=== PATIENT | female | born 1960 | race Caucasian/White ===

== ENCOUNTER 2020-09-13 08:24 | Emergency (ER) | payer OTHER, SELFPAY ==
--- NOTE | 2020-09-13 08:29 | ED.URI ---
HPI - URI/Sore Throat General Chief Complaint: Upper Respiratory Infection Stated Complaint: cough Time Seen by Provider: 09/13/20 08:55 Source: patient and RN notes reviewed Mode of arrival: ambulatory Limitations: no limitations History of Present Illness HPI Narrative: 59-year-old female presents concern for productive cough for 1-1/2 weeks. She reports she has been vaccinated for Covid. She denies fever, chills, body aches, sweats, shortness of breath, rhinorrhea, nasal congestion, sore throat, chest pain, nausea, vomiting, diarrhea. MD elicited complaint: cough Related Data Home Medications Medication Instructions Recorded Confirmed bupropion HCl 150 mg 24 hr tablet, 450 mg PO QAM tablet 02/22/20 09/13/20 extended release simvastatin 10 mg tablet 10 mg PO DAILY 02/22/20 09/13/20 fluoxetine 40 mg capsule 40 mg PO QAM cap 02/23/20 02/23/20 Calcium 500 mg PO DAILY 09/13/20 dicyclomine 20 mg PO BID 09/13/20 uvclwuplxtsa-lqy-agqf-FA-vit K 1 tablet PO DAILY 09/13/20 09/13/20 [Adults Multivitamin] omega 8-tyt-azx-fish oil [Fish Oil] 1 cap PO DAILY 09/13/20 09/13/20 Allergies Allergy/AdvReac Type Severity Reaction Status Date / Time iodine Allergy Severe Difficulty Verified 09/13/20 08:43 Breathing shellfish derived Allergy Severe Difficulty Verified 09/13/20 08:43 Breathing Penicillins Allergy Intermediate Rash Verified 09/13/20 08:43 codeine AdvReac Severe Vomiting Verified 09/13/20 08:43 erythromycin base AdvReac Severe Nausea and Verified 09/13/20 08:43 Vomiting anesthesia AdvReac Severe Vomiting Uncoded 09/13/20 08:43 Review of Systems Review of Systems: Narrative: CONSTITUTIONAL: Denies malaise, chills, sweats, or fever. EYES: Denies visual changes, redness, or discharge. ENT: Denies rhinorrhea, congestion, sinus pain, otalgia and sore throat. CARDIOVASCULAR: Denies chest pain, palpitations, or edema. RESPIRATORY: Reports cough. Denies dyspnea. GASTROINTESTINAL: Denies abdominal pain, nausea, vomiting, diarrhea SKIN: Denies rash or itching. MUSCULOSKELETAL: Denies myalgia. NEUROLOGIC: Denies headache. All systems reviewed & are unremarkable except as noted in HPI and below PMFSH Past Medical History Medical History (Updated 09/13/20 @ 09:07 by Jessie Valencia NP) Anemia Depression H/O: pneumonia HLD (hyperlipidemia) Surgical History Surgical History (Updated 02/22/20 @ 12:27 by Amara Kamara [facility]) H/O tubal ligation History of cholecystectomy History of laparoscopy History of tonsillectomy Family History Family History (Updated 02/22/20 @ 12:29 by Amara Kamara [facility]) Father Hypertension Malignant neoplasm of prostate Bone cancer Hyperlipidemia Mother Diabetes mellitus Type I Afib Family history of general anesthesia reaction Sibling Depression Social History Social History (Updated 02/22/20 @ 12:33 by Amara Kaamra [facility]) Smoking status: Never smoker Alcohol intake: current Substance use: never Substance use type: does not use Gender identity (if verbalized by the patient): Female Comments At time of signature, agree with nursing past medical, surgical, social and family history. There is no relevant family history pertinent to the presenting complaint Exam Narrative: Exam Narrative: GENERAL: Well-appearing, well-nourished, and in no acute distress. HEAD: Normocephalic EYES: PERRLA, conjunctivae clear ENT: Nares clear, turbinates pink, no discharge. Mucous membranes moist. TM pearly lopez with sharp light reflex bilaterally; no tragal tenderness. Oropharynx not erythematous without lesions. Tonsils not enlarged and without exudate, no drooling, no hoarseness, no trismus, uvula midline. NECK: Supple. No lymphadenopathy CHEST: Scattered rhonchi in the left upper and lower lobes, otherwise clear to auscultation, breath sounds equal. No wheezing, rales, or stridor. No respiratory distress, speaks in full sentences. HEART:
[2020-09-13 08:35] VITALS: BP 134/80; PULSE 83; RESP 16; TEMP 36.1; O2SAT 97
== END 2020-09-13 09:11 | disposition home or self-care (01) ==
PROVIDERS: Emergency Provider Nurse Practitioner
DX: J06.9 Acute upper respiratory infection, unspecified (principal); R05 Cough; R09.89 Other specified symptoms and signs involving the circulatory and respiratory systems; E78.5 Hyperlipidemia, unspecified; F32.9 Major depressive disorder, single episode, unspecified
CPT/HCPCS: 99213; G0463

== ENCOUNTER 2020-10-02 09:45 | Emergency (ER) | payer OTHER, SELFPAY ==
--- NOTE | ~2020-10-02 | XR_ITS ---
EXAMINATION: XR chest 2V 10/02/2020 10:13 INDICATION: Productive cough. PROCEDURE: 2 view chest COMPARISON: No prior studies for comparison. FINDINGS: The lungs are clear. The cardiomediastinal silhouette is within normal limits. There are no pleural effusions. There is no pneumothorax suspected. IMPRESSION: 1: NO ACUTE CARDIOPULMONARY DISEASE. Reviewed, dictated and finalized at location B.
--- NOTE | 2020-10-02 09:53 | ED.URI ---
HPI - URI/Sore Throat General Chief Complaint: Upper Respiratory Infection Stated Complaint: Allergies,Congestion Time Seen by Provider: 10/02/20 09:53 Source: patient and RN notes reviewed Mode of arrival: ambulatory Limitations: no limitations History of Present Illness HPI Narrative: 59-year-old female [facility] with complaints of my bronchitis is acting up. Patient reports productive cough, SOB. Used the inhaler that she was prescribed 09/13. Was seen for similar symptoms 09/13/20 Denies fevers. No chest pain or abdominal pain. HX of seasonal allergies and asthma Related Data Home Medications Medication Instructions Recorded Confirmed bupropion HCl 150 mg 24 hr tablet, 450 mg PO QAM tablet 02/22/20 09/13/20 extended release simvastatin 10 mg tablet 10 mg PO DAILY 02/22/20 09/13/20 fluoxetine 40 mg capsule 40 mg PO QAM cap 02/23/20 02/23/20 Calcium 500 mg PO DAILY 09/13/20 blzflyfqxytz-hab-jchm-FA-vit K 1 tablet PO DAILY 09/13/20 09/13/20 [Adults Multivitamin] omega 2-hyr-kpz-fish oil [Fish Oil] 1 cap PO DAILY 09/13/20 09/13/20 Allergies Allergy/AdvReac Type Severity Reaction Status Date / Time iodine Allergy Severe Difficulty Verified 10/02/20 10:00 Breathing shellfish derived Allergy Severe Difficulty Verified 10/02/20 10:00 Breathing Penicillins Allergy Intermediate Rash Verified 10/02/20 10:00 codeine AdvReac Severe Vomiting Verified 10/02/20 10:00 erythromycin base AdvReac Severe Nausea and Verified 10/02/20 10:00 Vomiting anesthesia AdvReac Severe Vomiting Uncoded 10/02/20 10:00 Review of Systems Review of Systems: All systems reviewed & are unremarkable except as noted in HPI and below Constitutional: Constitutional: Reports no additional constitutional complaints, Denies chills and Denies fever(s) Eyes: Eyes: Reports no additional eye complaints ENT: Reports system reviewed and no additional complaints, except as documented, Denies dysphagia, Denies dizziness, Denies nasal congestion and Denies sore throat Cardiovascular: Cardiovascular: Reports no additional cardiovascular complaints and Denies chest pain Respiratory: Respiratory: Reports as per HPI, Reports chest congestion, Reports cough and Reports dyspnea Gastrointestinal: Gastrointestinal: Reports no additional gastrointestinal complaints, Denies abdominal pain, Denies nausea and Denies vomiting Musculoskeletal: Musculoskeletal: Reports no additional musculoskeletal complaints and Denies back pain Integumentary/Breasts: Skin/Breast: Reports system reviewed and no additional complaints, except as docu and Denies rash Neurologic: Reports system reviewed and no additional complaints, except as documented, Denies dizziness, Denies headache(s), Denies focal weakness and Denies numbness Psychiatric: Psychiatric: Reports no additional psychiatric complaints Allergic/Immunologic: Allergic/Immunologic: Reports no additional allergic/immunologic complaints, Denies lip swelling, Denies throat swelling and Denies tongue swelling PMFSH Past Medical History Medical History (Updated 10/02/20 @ 11:09 by Jessie Roa) Anemia Depression H/O: pneumonia HLD (hyperlipidemia) Surgical History Surgical History H/O tubal ligation History of cholecystectomy History of laparoscopy History of tonsillectomy Family History Family History Father Hypertension Malignant neoplasm of prostate Bone cancer Hyperlipidemia Mother Diabetes mellitus Type I Afib Family history of general anesthesia reaction Sibling Depression Social History Social History Smoking status: Never smoker Alcohol intake: current Substance use: never Substance use type: does not use Gender identity (if verbalized by the patient): Female Comments At the time of my signature,
[2020-10-02 09:55] VITALS: BP 135/87; PULSE 71; RESP 16; TEMP 37.1; O2SAT 98
[2020-10-02] MEDS: IPRATROPIUM BR 0.02% INH SOLN 0.5 MG/2.5 ML VIAL INHALATION (10:15)
[2020-10-02] MEDS: ALBUTEROL SULFATE NEB 2.5 MG/3 ML INH INHALATION (10:15)
== END 2020-10-02 11:14 | disposition home or self-care (01) ==
PROVIDERS: Emergency Provider Nurse Practitioner; PCP Family Medicine
DX: J45.901 Unspecified asthma with (acute) exacerbation (principal); E78.00 Pure hypercholesterolemia, unspecified
CPT/HCPCS: 71046; 94640; 99213; G0463

== ENCOUNTER 2021-01-20 08:08 | Emergency (ER) | payer OTHER, SELFPAY ==
--- NOTE | ~2021-01-20 | XR_ITS ---
XR chest 2V DATE: 01/20/2021 08:48 INDICATION: Productive cough for 4 months. Nonsmoker. TECHNIQUE: 2 views COMPARISON: 10/02/2020 2 view chest FINDINGS: Normal heart size. There is aortic tortuosity. No hilar or mediastinal enlargement. Mild bilateral apical capping. There is mild discoid atelectasis at the lung bases. The lungs otherwise appear clear. No pleural eff usion or pulmonary vascular congestion or pneumothorax. Surgical clips, right upper quadrant, consistent with cholecystectomy. IMPRESSION: Mild bibasilar discoid atelectasis; otherwise no significant change since 10/02/2020 Reviewed, dictated and finalized at location A.
[2021-01-20 08:17] VITALS: BP 140/97; PULSE 87; RESP 16; TEMP 35.9; O2SAT 95
--- NOTE | 2021-01-20 08:31 | ED.GENADULT ---
HPI - General Adult General Chief complaint: Upper Respiratory Infection Stated complaint: cp/cough Source: patient Mode of arrival: ambulatory Limitations: no limitations History of Present Illness HPI narrative: Patient is a 60-year-old female who presents to the [facility] via POV for evaluation of a wet cough that has been present since September that has worsened over the past 3 to 4 days. Patient has pertinent history of asthma. Additionally, she reports sputum production, chest tightness, and painful cough. Sputum production is thick and green in color. At home nebulizer treatments provide mild to moderate relief. Seasonal changes exacerbate symptoms. She is concerned she may have pneumonia. Of note, PCP has been managing her asthma although recently referred her to pulm. Her first appointment is 02/07/2021. She has a history of pneumonia and states today's symptoms are similar to previous episode. Denies a history of hypertension, diabetes, and renal insufficiency. Related Data Home Medications Medication Instructions Recorded Confirmed gllcgbsvmthf-huf-drmg-FA-vit K 1 tablet PO DAILY 09/13/20 01/20/21 [Adults Multivitamin] omega 7-fpj-rfq-fish oil [Fish Oil] 1 cap PO DAILY 09/13/20 01/20/21 albuterol sulfate 2.5 mg CONTINUOUS NEBULIZATION PRN 01/20/21 01/20/21 bupropion HCl 150 mg PO DAILY 01/20/21 01/20/21 dicyclomine 20 mg PO DAILY 01/20/21 01/20/21 fluoxetine 40 mg PO DAILY 01/20/21 01/20/21 montelukast 10 mg PO DAILY 01/20/21 01/20/21 simvastatin 10 mg PO DAILY 01/20/21 01/20/21 Allergies Allergy/AdvReac Type Severity Reaction Status Date / Time iodine Allergy Severe Difficulty Verified 01/20/21 08:27 Breathing shellfish derived Allergy Severe Difficulty Verified 01/20/21 08:27 Breathing Penicillins Allergy Intermediate Rash Verified 01/20/21 08:27 codeine AdvReac Severe Vomiting Verified 01/20/21 08:27 erythromycin base AdvReac Severe Nausea and Verified 01/20/21 08:27 Vomiting anesthesia AdvReac Severe Vomiting Uncoded 01/20/21 08:27 Review of Systems Review of Systems: denies history of COPD. Denies current/past tobacco use. Denies fever, sweats, chills, change in appetite, fatigue, skin color changes, headache, nasal congestion/discharge, dizziness, lymphadenopathy, sinus problems, ear pain/drainage, chest pain, heart murmurs, heart palpitations, shortness of breath, wheezing, cyanosis, hemoptysis, hoarseness, orthopnea, pleuritic pain, nausea, vomiting, diarrhea, and myalgias. PMFSH Past Medical History Medical History Anemia Depression H/O: pneumonia HLD (hyperlipidemia) Surgical History Surgical History H/O tubal ligation History of cholecystectomy History of laparoscopy History of tonsillectomy Family History Family History Father Hypertension Malignant neoplasm of prostate Bone cancer Hyperlipidemia Mother Diabetes mellitus Type I Afib Family history of general anesthesia reaction Sibling Depression Social History Social History Smoking status: Never smoker Alcohol intake: never Substance use: never Substance use type: does not use Gender identity (if verbalized by the patient): Female Comments I have reviewed and agree with the patient's past medical, surgical, social, and family hx as documented by the RN. There is no relevant family history pertinent to the presenting complaint. Exam Narrative: GENERAL: Well-appearing, well-nourished, and in no acute distress. HEAD: Normocephalic, atraumatic. No sinus tenderness or facial swelling appreciated. EYES: PERRLA and EOMI. No evidence of erythema, swelling, or drainage. ENT: Bilateral external ears and ear canals normal. Bilateral TMs are normal.No
== END 2021-01-20 09:32 | disposition home or self-care (01) ==
PROVIDERS: Emergency Provider Nurse Practitioner Family; PCP Family Medicine
DX: J45.901 Unspecified asthma with (acute) exacerbation (principal); E78.5 Hyperlipidemia, unspecified; F32.A Depression, unspecified; D64.9 Anemia, unspecified
CPT/HCPCS: 71046; 99213; G0463

== ENCOUNTER 2021-03-01 14:22 | Outpatient (CLI) | payer OTHER, SELFPAY ==
--- NOTE | 2021-03-01 17:15 | WPDPFTINT ---
PFT Procedure Performed PFT Procedure Performed Spirometry with Pre/Post Bronchodilator Plethysmography (Lung Vol) Diffusing Cap (DLCO) Flow Vol Loop PFT Interpretation This is a pulmonary function test with pre and post-bronchodilator spirometry, plethysmography and diffusing capacity. The test was performed and results interpreted in accordance with the 2019 and 2005 ATS/ERS Task Force guidelines respectively using the Global Lung Function Initiative-2012 reference equations. Patient demonstrated good effort and cooperation. Reproducibility criteria were met. The quality of the pre bronchodilator spirometry maneuver was Grade A and post bronchodilator spirometry maneuver was Grade A. Findings: Spirometry: The contour the inspiratory and expiratory flow flow tracing are normal. The pre bronchodilator FVC is 3.02 L, 94% predicted. The pre bronchodilator FEV1 is 2.32 L, 92% predicted. The FEV1: FVC ratio 77%. The post bronchodilator FVC is 3.09 L, representing a 2% increase. The post bronchodilator FEV1 is 2.52 L, representing an 8% increase. The post bronchodilator FEV1: FVC ratio is 81%. Plethysmography: The total lung capacity is 5.34 L, 103% predicted. Functional residual capacity is 2.81 L, 95% predicted. The residual volume is 2.10 L, 101% predicted. Diffusing capacity: The absolute diffusion capacity is 19.1, 88% predicted. The diffusing capacity corrected for alveolar volume is 4.53, 104% predicted. FVC is 3.02 L, 94% predicted. The pre bronchodilator Impression: The spirometry is normal without evidence of an obstructive abnormality. There is no significant improvement after inhaling a single dose of albuterol. The lung volumes are normal. The diffusing capacity is normal. There are no prior studies for comparison
== END 2021-03-01 14:23 | disposition home or self-care (01) ==
PROVIDERS: PCP Family Medicine; Visit Provider Internal Medicine Pulmonary Disease
DX: J45.20 Mild intermittent asthma, uncomplicated (principal)
CPT/HCPCS: 94060; 94726; 94729

== ENCOUNTER 2021-11-10 09:37 | Emergency (ER) | payer OTHER, SELFPAY ==
[2021-11-10 09:43] VITALS: BP 126/81; PULSE 101; RESP 20; TEMP 36.3; O2SAT 99
--- NOTE | 2021-11-10 09:47 | ED.ABDPAIN ---
HPI - Abdominal Pain General Chief Complaint: Abdominal Pain Stated Complaint: STOMACH CRAMPS/VOMITING/DIARRHEA Time Seen by Provider: 11/10/21 10:05 Source: patient and RN notes reviewed Mode of arrival: ambulatory Limitations: no limitations History of Present Illness HPI narrative: 61-year-old female presents with concern for nausea, general malaise. She reports on Friday after she ate food from [employer] she began having vomiting and diarrhea. She reports 2-3 episodes of vomiting and 2-3 episodes of diarrhea daily on Friday and . Reports she has not had vomiting or diarrhea since , however she continues to be nauseated and have general malaise. She reports headache. Reports last night she woke up and a cold sweat and then had chills. She reports she has been having a low-grade temperature. She reports epigastric abdominal pain. She denies any urine frequency, urgency, dysuria. She denies nasal congestion, rhinorrhea, sore throat, cough. She reports she had a normal bowel movement since her diarrhea stopped MD elicited complaint: other (Vomiting, diarrhea) Related Data Home Medications Medication Instructions Recorded Confirmed multivit with minerals-iron 18 1 tablet PO DAILY 09/13/20 11/10/21 mg-folic ac 400 mcg-vit K 25 mcg tablet (Adults Multivitamin) omega 3-kgc-yvo-fish oil 1,000 mg 1 cap PO DAILY 09/13/20 11/10/21 (120 mg-180 mg) capsule (Fish Oil) albuterol sulfate 2.5 mg/3 mL 2.5 mg continuous nebulization PRN 01/20/21 11/10/21 (0.083 %) solution for nebulization Allergies Allergy/AdvReac Type Severity Reaction Status Date / Time iodine Allergy Severe Difficulty Verified 11/10/21 09:43 Breathing shellfish derived Allergy Severe Difficulty Verified 11/10/21 09:43 Breathing Penicillins Allergy Intermediate Rash Verified 11/10/21 09:43 codeine AdvReac Severe Vomiting Verified 11/10/21 09:43 erythromycin base AdvReac Severe Nausea and Verified 11/10/21 09:43 Vomiting anesthesia AdvReac Severe Vomiting Uncoded 11/10/21 09:43 Review of Systems Review of Systems: CONSTITUTIONAL: Reports malaise, chills, sweats, low-grade fever. ENT: Denies rhinorrhea, congestion, sinus pain, otalgia or sore throat. CARDIOVASCULAR: Denies chest pain, palpitations, or edema. RESPIRATORY: Denies cough or dyspnea. GASTROINTESTINAL: Reports epigastric abdominal pain, nausea, vomiting, diarrhea. Denies bloody, or mucous stools. GENITOURINARY: Denies dysuria or hematuria. MUSCULOSKELETAL: Denies myalgia. NEUROLOGIC: Reports headache. All systems reviewed & are unremarkable except as noted in HPI and below PMFSH Past Medical History Medical History Anemia Depression H/O: pneumonia HLD (hyperlipidemia) Surgical History Surgical History H/O tubal ligation History of cholecystectomy History of laparoscopy History of tonsillectomy Family History Family History Father Hypertension Malignant neoplasm of prostate Bone cancer Hyperlipidemia Mother Diabetes mellitus Type I Afib Family history of general anesthesia reaction Sibling Depression Social History Social History (Updated 09/04/21 @ 09:29 by Andreina Roman MA) Smoking status: Never smoker Second hand tobacco smoke exposure: Yes Alcohol intake: former Substance use: never Substance use type: does not use Gender identity (if verbalized by the patient): Female Comments At time of signature, agree with nursing past medical, surgical, social and family history. There is no relevant family history pertinent to the presenting complaint Exam Narrative: GENERAL: Well-appearing, well-nourished, and in no acute distress. HEAD: Normocephalic, atraumatic. EYES: PERRLA, conjunctivae clear, and EOMI. ENT: Nares clear, turbinates pi
[2021-11-10] MEDS: MAG HYDROX/AL HYDROX/SIMETH 30 ML UDC PO (10:28)
[2021-11-10] MEDS: LIDOCAINE HCL 2% VISC SOLN 15 ML UDC PO (10:28)
== END 2021-11-10 11:01 | disposition home or self-care (01) ==
PROVIDERS: Emergency Provider Nurse Practitioner; PCP Family Medicine
DX: R10.13 Epigastric pain (principal); Z20.822 Contact with and (suspected) exposure to COVID-19; E78.5 Hyperlipidemia, unspecified
CPT/HCPCS: 87426; 99213; A9270; C9803; G0463

== ENCOUNTER 2021-12-04 08:18 | Emergency (ER) | payer OTHER, SELFPAY ==
--- NOTE | 2021-12-04 08:24 | ED.ABDPAIN ---
HPI - Abdominal Pain General Chief Complaint: Abdominal Pain Stated Complaint: abd cramps Source: patient and RN notes reviewed Mode of arrival: ambulatory Limitations: no limitations History of Present Illness HPI narrative: 61-year-old female presents with concern for ongoing epigastric pain. She reports she was seen at the beginning of November for epigastric pain that was made worse after eating. She reports she took the medications prescribed to her which included omeprazole, Pepcid, Maalox. She reports those medications did help her symptoms. She followed up with her primary care doctor who advised her to finish those medications. She reports she has completed the course of both of those medications but her pain is persisting and is made worse after eating. She reports has been taking Mylanta many times a day with only very mild improvement. She reports she has an appointment with her primary care again on December 12 however she felt she could not wait to be seen. She reports she has been only eating crackers and water due to the pain. Reports she has lost approximately 15 pounds since this started. She denies nausea, vomiting, diarrhea, constipation. She has history of cholecystectomy. MD elicited complaint: abdominal pain Related Data Home Medications Medication Instructions Recorded Confirmed multivit with minerals-iron 18 1 tablet PO DAILY 09/13/20 11/10/21 mg-folic ac 400 mcg-vit K 25 mcg tablet (Adults Multivitamin) omega 9-obo-crl-fish oil 1,000 mg 1 cap PO DAILY 09/13/20 11/10/21 (120 mg-180 mg) capsule (Fish Oil) albuterol sulfate 2.5 mg/3 mL 2.5 mg continuous nebulization PRN 01/20/21 11/10/21 (0.083 %) solution for nebulization Allergies Allergy/AdvReac Type Severity Reaction Status Date / Time iodine Allergy Severe Difficulty Verified 12/04/21 08:29 Breathing shellfish derived Allergy Severe Difficulty Verified 12/04/21 08:29 Breathing Penicillins Allergy Intermediate Rash Verified 12/04/21 08:29 codeine AdvReac Severe Vomiting Verified 12/04/21 08:29 erythromycin base AdvReac Severe Nausea and Verified 12/04/21 08:29 Vomiting anesthesia AdvReac Severe Vomiting Uncoded 12/04/21 08:29 Review of Systems Review of Systems: CONSTITUTIONAL: Denies malaise, chills, sweats, or fever. Reports unintentional weight loss ENT: Denies rhinorrhea, congestion, sinus pain, otalgia or sore throat. CARDIOVASCULAR: Denies chest pain, palpitations, or edema. RESPIRATORY: Denies cough or dyspnea. GASTROINTESTINAL: Reports epigastric abdominal pain. Denies nausea, vomiting, diarrhea, bloody, or mucous stools. GENITOURINARY: Denies dysuria or hematuria. MUSCULOSKELETAL: Denies myalgia. NEUROLOGIC: Denies headache. All systems reviewed & are unremarkable except as noted in HPI and below PMFSH Past Medical History Medical History Anemia Depression H/O: pneumonia HLD (hyperlipidemia) Surgical History Surgical History H/O tubal ligation History of cholecystectomy History of laparoscopy History of tonsillectomy Family History Family History Father Hypertension Malignant neoplasm of prostate Bone cancer Hyperlipidemia Mother Diabetes mellitus Type I Afib Family history of general anesthesia reaction Sibling Depression Social History Social History Smoking status: Never smoker Second hand tobacco smoke exposure: Yes Alcohol intake: former Substance use: never Substance use type: does not use Gender identity (if verbalized by the patient): Female Comments At time of signature, agree with nursing past medical, surgical, social and family history. There is no relevant family history pertinent to the presenting complaint Exam Narrative: GENE
[2021-12-04 08:27] VITALS: BP 128/76; PULSE 92; RESP 16; TEMP 36.8; O2SAT 99
== END 2021-12-04 09:02 | disposition home or self-care (01) ==
PROVIDERS: Emergency Provider Nurse Practitioner; PCP Family Medicine
DX: R10.13 Epigastric pain (principal); E78.5 Hyperlipidemia, unspecified
CPT/HCPCS: 99213; G0463

== ENCOUNTER 2022-01-03 00:36 | Day surgery (SDC) | payer OTHER, SELFPAY ==
[2021-12-12 10:03] VITALS: BMI 27.5
--- NOTE | 2021-12-18 15:01 | PC.NURSE ---
Spoke with pt. regarding upcoming EGD procedure. Instructed on new time of 01/03/22 at 1330. PAT questions updated. No questions or concerns verbalized.
--- NOTE | 2022-01-02 14:55 | PM.HPGS ---
History of Present Illness History of Present Illness Consent: Risks, benefits, and alternatives have been discussed and questions answered. Patient agrees to proceed with procedure. Chief complaint: epigastric pain, nausea Narrative: Bhargavi Catalan is a 61 year old female Referred forevaluation of nausea and epigastric pain since November 07.? states symptoms started right after eating [employer].? states she developed epigastric abdominal pain and nausea but no vomiting. ? States that she tried to eat symptoms would become worse. ? When symptoms did not improve after 3 days she eventually followed up at urgent care. ? She was told she most likely had food poisoning and was discharged home on Mylanta that she took four times a day.? she then followed up with her PCP was started on omeprazole and famotidine.? states symptoms somewhat improved but never completely went away. symptoms are worse after eating and has lost approximately 10-15 lb since her symptoms started.? some days she can only tolerate water and crackers.? She denies any vomiting, dysphagia or odynophagia.? she then had gone to the emergency room was given Carafate and pantoprazole with improvement of her symptoms. Review of Systems Review of Systems: All systems reviewed & are unremarkable except as noted in HPI and below PMFSH Past Medical History Medical History Anemia Anxiety Depression Epigastric pain H/O: pneumonia HLD (hyperlipidemia) Nausea Overweight (BMI 25.0-29.9) Surgical History Surgical History H/O tubal ligation History of cholecystectomy History of laparoscopy History of tonsillectomy Family History Family History Father Hypertension Malignant neoplasm of prostate Bone cancer Hyperlipidemia Mother Diabetes mellitus Type I Afib Family history of general anesthesia reaction Sibling Depression Social History Social History Smoking status: Never smoker Second hand tobacco smoke exposure: Yes Alcohol intake: former Substance use: never Substance use type: does not use Living arrangements: with family Gender identity (if verbalized by the patient): Female Spiritual care concerns: No Meds Home Medications and Allergies Home Medications Medication Instructions Recorded Confirmed Type multivit with minerals-iron 18 1 tablet PO DAILY 06/02/21 09/07/22 History mg-folic ac 400 mcg-vit K 25 mcg tablet (Adults Multivitamin) omega 3-qdr-pgg-fish oil 1,000 mg 1 cap PO DAILY 09/13/20 12/19/21 History (120 mg-180 mg) capsule (Fish Oil) albuterol sulfate 90 mcg/actuation 2 puff inhalation QID PRN 09/04/21 12/19/21 Rx aerosol inhaler (ProAir HFA) shortness of breath or wheezing #1 ea montelukast 10 mg tablet 10 mg PO DAILY #90 tabs 09/28/21 12/19/21 Rx simvastatin 10 mg tablet 10 mg PO DAILY #90 tabs 09/28/21 12/19/21 Rx bupropion HCl 150 mg 24 hr tablet, 150 mg PO TID #270 tabs 12/03/21 12/19/21 Rx extended release calcium carbonate 500 mg calcium 500 mg PO BID 12/10/21 12/19/21 History (1,250 mg) chewable tablet (Calcium 500) pantoprazole 40 mg tablet,delayed 40 mg PO DAILY 1 month #30 tabs 12/10/21 12/19/21 Rx release (Protonix) budesonide-formoterol HFA 160 See Rx Instructions .Route .COMPLEX 12/12/21 12/19/21 History mcg-4.5 mcg/actuation aerosol inhaler (Symbicort) fluoxetine 20 mg capsule 20 mg PO DAILY #90 caps 12/24/21 Rx fluoxetine 40 mg capsule 40 mg PO DAILY #90 caps 12/31/21 Rx Allergies Allergy/AdvReac Type Severity Reaction Status Date / Time iodine Allergy Severe Difficulty Verified 12/19/21 09:07 Breathing shellfish derived Allergy Severe Difficulty Verified 12/19/21 09:07 Breathing Penicillins Allergy Intermediate Rash Verified
[2022-01-03 12:00] VITALS: BMI 27.8
[2022-01-03] MEDS: LACTATED RINGERS 1,000 ML 150 ML IV CONT (12:16)
--- NOTE | 2022-01-03 12:19 | WPDANESEPPF ---
Anes - Initial Pre Proc Eval Procedure: Operation Date: 01/03/22 13:30 Proposed Procedures p Esophagogastroduodenoscopy - Cisco Joyner MD Date/Time: 01/03/22 12:19 Surgeon: Cisco Joyner MD Pre Op Diagnosis: epigastric pain, nausea Patient Data Age: 61 Gender: F Height: 1.65 m Weight: 75.7 kg Allergies Allergy/AdvReac Type Severity Reaction Status Date / Time iodine Allergy Severe Difficulty Verified 12/19/21 09:07 Breathing shellfish derived Allergy Severe Difficulty Verified 12/19/21 09:07 Breathing Penicillins Allergy Intermediate Rash Verified 12/19/21 09:07 codeine AdvReac Severe Vomiting Verified 12/19/21 09:07 erythromycin base AdvReac Severe Nausea and Verified 12/19/21 09:07 Vomiting anesthesia AdvReac Severe Vomiting Uncoded 12/19/21 09:07 Home Medications Medication Instructions Recorded Confirmed Type multivit with minerals-iron 18 1 tablet PO DAILY 09/13/20 12/19/21 History mg-folic ac 400 mcg-vit K 25 mcg tablet (Adults Multivitamin) omega 3-jps-yjv-fish oil 1,000 mg 1 cap PO DAILY 09/13/20 12/19/21 History (120 mg-180 mg) capsule (Fish Oil) albuterol sulfate 90 mcg/actuation 2 puff inhalation QID PRN 09/04/21 12/19/21 Rx aerosol inhaler (ProAir HFA) shortness of breath or wheezing #1 ea montelukast 10 mg tablet 10 mg PO DAILY #90 tabs 09/28/21 12/19/21 Rx simvastatin 10 mg tablet 10 mg PO DAILY #90 tabs 09/28/21 12/19/21 Rx bupropion HCl 150 mg 24 hr tablet, 150 mg PO TID #270 tabs 12/03/21 12/19/21 Rx extended release calcium carbonate 500 mg calcium 500 mg PO BID 12/10/21 12/19/21 History (1,250 mg) chewable tablet (Calcium 500) pantoprazole 40 mg tablet,delayed 40 mg PO DAILY 1 month #30 tabs 12/10/21 12/19/21 Rx release (Protonix) budesonide-formoterol HFA 160 See Rx Instructions .Route .COMPLEX 12/12/21 12/19/21 History mcg-4.5 mcg/actuation aerosol inhaler (Symbicort) fluoxetine 20 mg capsule 20 mg PO DAILY #90 caps 12/24/21 Rx fluoxetine 40 mg capsule 40 mg PO DAILY #90 caps 12/31/21 Rx Patient hx anesthesia problems: none Family hx anesthesia problems: none Results Review: All pre-operative results and documents have been reviewed as part of the pre-operative evaluation. [facility] Past Medical History Medical History (Updated 12/19/21 @ 09:58 by SHERRY Borja) Anemia Anxiety Depression Epigastric pain H/O: pneumonia HLD (hyperlipidemia) Nausea Overweight (BMI 25.0-29.9) Surgical History Surgical History H/O tubal ligation History of cholecystectomy History of laparoscopy History of tonsillectomy Family History Family History Father Hypertension Malignant neoplasm of prostate Bone cancer Hyperlipidemia Mother Diabetes mellitus Type I Afib Family history of general anesthesia reaction Sibling Depression Social History Social History Smoking status: Never smoker Second hand tobacco smoke exposure: Yes Alcohol intake: former Substance use: never Substance use type: does not use Living arrangements: with family Gender identity (if verbalized by the patient): Female Spiritual care concerns: No Anes - Eval Final PreProcedure Day of Procedure 01/03/22 12:19 Patient weight: normal Heart: regular rate and rhythm Lungs: clear to auscultation Airway: Mallampati scale class II Neurological: alert and oriented Last oral intake: >/= 8 hours ASA classification: II Emergent: no Anesthetic plan: proceed Anesthesia type and monitoring: general GIVS and standard monitoring Results Review: All pre-operative results and documents have been reviewed as part of the pre-operative evaluation. Informed Consent: The patient's anesthetic plan and its attendant risks and benefits were discusse
[2022-01-03 13:29] VITALS: BP 132/79; PULSE 75; RESP 20; O2SAT 98
[2022-01-03 13:39] VITALS: BP 136/90; PULSE 77; RESP 18; O2SAT 98
[2022-01-03 13:49] VITALS: BP 146/96; PULSE 70; RESP 15; O2SAT 100
== END 2022-01-03 14:09 | disposition home or self-care (01) ==
PROVIDERS: PCP Family Medicine; Visit Provider Internal Medicine Gastroenterology
PROC: 0DJ08ZZ Inspection of Upper Intestinal Tract, Via Natural or Artificial Opening Endoscopic (ICD-10-PCS; CPT 43235; principal; 2022-01-03 13:30)
DX: R11.2 Nausea with vomiting, unspecified (principal); K21.9 Gastro-esophageal reflux disease without esophagitis; Z90.49 Acquired absence of other specified parts of digestive tract; R10.13 Epigastric pain; Z79.51 Long term (current) use of inhaled steroids; D64.9 Anemia, unspecified; F41.9 Anxiety disorder, unspecified; F32.A Depression, unspecified; E78.5 Hyperlipidemia, unspecified
CPT/HCPCS: 43239; 88305; J2704; J7120

== ENCOUNTER 2022-05-17 09:21 | Outpatient (CLI) | payer OTHER, SELFPAY ==
--- NOTE | ~2022-05-17 | XR_ITS ---
Clinical Indication: Chest pain PA and lateral views of the chest: Comparison: 01/20/2021 Findings: The lungs are clear, without evidence of focal consolidation or pleural effusion. Cardiome diastinal silhouette is within normal limits. Bones and soft tissues are unremarkable. Impression: Normal chest. Reviewed, dictated and finalized at [facility]. OVERY MANAGER Impression: Normal chest.
--- NOTE | 2022-05-17 09:46 | ECG_ITS ---
Measurements Intervals [place] Rate: 68 P: 47 NJ: 139 QRS: 7 QRSD: 94 T: 46 QT: 384 QTc: 410 Interpretive Statements SINUS RHYTHM INCOMPLETE RIGHT BUNDLE BRANCH BLOCK [90+ ms QRS DURATION, TERMINAL R IN V1/V2, 40+ ms S IN I/aVL/V4/V5/V6] BORDERLINE ECG NO PREVIOUS ECG AVAILABLE FOR COMPARISON Electronically Signed On 05-17-2022 14:58:47 NETWORK SECURITY ANALYST by Terrence Li M.D.
== END 2022-05-17 09:22 | disposition home or self-care (01) ==
PROVIDERS: PCP Family Medicine; Visit Provider Physician Assistant Medical
DX: R07.9 Chest pain, unspecified (principal); I45.10 Unspecified right bundle-branch block
CPT/HCPCS: 71046; 93005

== ENCOUNTER → 2022-05-22 10:49 | Outpatient (CLI) | payer OTHER, SELFPAY ==
--- NOTE | ~2022-05-22 | US_ITS ---
Renal-Bladder ultrasound Clinical History: Renal failure Technique: Real-time sonographic imaging of the kidneys and urinary bladder was performed. Findings: The right kidney measures 11.5 cm in length and the left kidney measures 11.8 cm. There is no hydronephrosis or renal calculus identified. Renal cortical echogenicity is within normal limits. No renal mass lesion is identified. The urinary bladder is moderately distended at the time of this exam. No intraluminal echoes are iden tified. No abnormal wall thickening is seen. Impression: Unremarkable ultrasound of the kidneys and urinary bladder. Reviewed, dictated and finalized at location M. OR UI WEB DEVELOPER Impression: Unremarkable ultrasound of the kidneys and urinary bladder.
== END ==
PROVIDERS: PCP Family Medicine; Visit Provider Physician Assistant Medical
DX: N17.9 Acute kidney failure, unspecified (principal)
CPT/HCPCS: 76775

== ENCOUNTER 2022-05-24 08:22 | Outpatient (CLI) | payer OTHER, SELFPAY ==
--- NOTE | ~2022-05-24 | NM_ITS ---
EXAMINATION: NM stress w perf spect multi DATE: 05/28/2022 08:56 INDICATION: Chest pain, unspecified. TECHNIQUE: Rest images were obtained following intravenous administration of 10.3 mCi Tc99m tetrofosm in (Myoview). The patient performed an exercise activity. At peak exercise, 32.8 mCi Tc99m tetrofosmi n (Myoview) was administered intravenously, and stress images were obtained. Data was reconstructed i nto short axis and horizontal and vertical long axis SPECT images. Gated SPECT images were also obtai zeeshan. COMPARISON: None. FINDINGS: There is no definite reversible or fixed perfusion abnormality to suggest ischemia or infar ction. There is no segmental wall motion abnormality. Left ventricular ejection fraction measures 6 8%. IMPRESSION: 1. No definite ischemia or infarct. 2. Normal left ventricular ejection fraction measuring 68%. Reviewed, dictated and finalized at location A. H NUTRITIONAL MONITOR
--- NOTE | 2022-05-24 08:24 | EST_ITS ---
Patient Info Name: Bhargavi Catalan Age: 61 years : 1960 Gender: Female Ht: 66 in Wt: 165 lbs BSA: 1.88 m2 HR: 81 bpm BP: 143 / 93 mmHg Heart Rhythm: Sinus Rhythm Exam Date: 05/24/2022 9:23 AM Exam Location: [facility] Stress Patient Status: Outpatient Admit Date: 05/24/2022 Staff Ordering Physician: Livier Lindsay Attending Provider: Livier Lindsay Exercise Technologist: Aditi Mclaughlin CT Exercise Physician: Kulwinder Golden DO Exam Type: CA stress test treadmill w NM Study Info Indications R07.9 - Chest pain, unspecified A nuclear stress test was performed. Summary 1. 1. Negative Osvaldo exercise stress test for ischemic ST changes by ECG criteria. 2. 2. Good functional capacity, achieving 10 METs of workload. 3. 3. Baseline hypertension. 4. 4. Appropriate HR response to exercise. 5. 5. Appropriate HR recovery at 1 minute post exercise. 6. 6. Nuclear scan to follow and will be reported separately. Please correlat with it. 7. 7. Patient informed of the above results. Protocol: Osvaldo Stress ECG Details Stage: REST Duration (min): 1 min : 22 sec Speed (mph): 0.0 Grade (%): 0 HR (bpm): 81 SBP (mmHg): 144 DBP (mmHg): 93 METS: --- Stage: REST Duration (min): 5 min : 59 sec Speed (mph): 0.0 Grade (%): 0 HR (bpm): 89 SBP (mmHg): 144 DBP (mmHg): 93 METS: --- Stage: STAGE 1 Duration (min): 1 min : 0 sec Speed (mph): 1.7 Grade (%): 10 HR (bpm): 99 SBP (mmHg): 144 DBP (mmHg): 93 METS: --- Stage: STAGE 1 Duration (min): 2 min : 0 sec Speed (mph): 1.7 Grade (%): 10 HR (bpm): 104 SBP (mmHg): 144 DBP (mmHg): 93 METS: --- Stage: STAGE 1 Duration (min): 3 min : 0 sec Speed (mph): 1.7 Grade (%): 10 HR (bpm): 106 SBP (mmHg): 165 DBP (mmHg): 89 METS: --- Stage: STAGE 2 Duration (min): 1 min : 0 sec Speed (mph): 2.5 Grade (%): 12 HR (bpm): 115 SBP (mmHg): 165 DBP (mmHg): 89 METS: --- Stage: STAGE 2 Duration (min): 2 min : 0 sec Speed (mph): 2.5 Grade (%): 12 HR (bpm): 119 SBP (mmHg): 159 DBP (mmHg): 91 METS: --- Stage: STAGE 2 Duration (min): 3 min : 0 sec Speed (mph): 2.5 Grade (%): 12 HR (bpm): 124 SBP (mmHg): 159 DBP (mmHg): 91 METS: --- Stage: STAGE 3 Duration (min): 1 min : 0 sec Speed (mph): 3.4 Grade (%): 14 HR (bpm): 135 SBP (mmHg): 123 DBP (mmHg): 82 METS: --- Stage: STAGE 3 Duration (min): 1 min : 50 sec Speed (mph): 3.4 Grade (%): 14 HR (bpm): 137 SBP (mmHg): 143 DBP (mmHg): 82 METS: --- Stage: RECOVERY Duration (min): 0 min : 9 sec Speed (mph): 1.5 Grade (%): 0 HR (bpm): 137 SBP (mmHg): 143 DBP (mmHg): 82 METS: --- Stage: RECOVERY Duration (min): 1 min : 9 sec Speed (mph): 0.0 Grade (%): 0 HR (bpm): 114 SBP (mm
== END 2022-05-24 08:23 | disposition home or self-care (01) ==
PROVIDERS: PCP Family Medicine; Visit Provider Physician Assistant Medical
DX: R07.9 Chest pain, unspecified (principal)
CPT/HCPCS: 78452; 93017; A9502

== ENCOUNTER → 2023-04-18 11:01 | Outpatient (CLI) | payer OTHER, SELFPAY ==
--- NOTE | ~2023-04-18 | MM_ITS ---
EXAMINATION: MM screening og BI w ronald HISTORY: Screening mammogram TECHNIQUE: Craniocaudal and mediolateral oblique 3-D tomosynthesis images were obtained and synthetic 2-D images were generated. CAD analysis was submitted and interpreted. COMPARISON: No prior mammogram is available for comparison at this institution. BREAST PARENCHYMAL COMPOSITION: There are scattered areas of fibroglandular density. FINDINGS: No suspicious mass, calcification, or architectural distortion are identified in either michelle ast to suggest malignancy. IMPRESSION: 1. No mammographic evidence of malignancy. 2. Recommend routine screening mammography in one year. BI-RADS Category 1: Negative Reviewed, dictated and finalized at location A. OR AT LARGE
== END ==
PROVIDERS: PCP Physician Assistant Medical; Visit Provider Physician Assistant Medical
DX: Z12.31 Encounter for screening mammogram for malignant neoplasm of breast (principal)
CPT/HCPCS: 77063; 77067

== ENCOUNTER → 2023-06-06 13:01 | Outpatient (CLI) | payer OTHER, SELFPAY ==
--- NOTE | ~2023-06-06 | US_ITS ---
EXAMINATION: US thyroid DATE: 06/06/2023 13:19 INDICATION: Nontoxic single thyroid nodule. TECHNIQUE: Multiple ultrasound images of the thyroid were obtained. COMPARISON: None. FINDINGS: The right thyroid lobe measures 4.7 x 1.6 x 1.3 cm. The left thyroid lobe measures 4.5 x 1.1 x 1.2 c m. In the left thyroid lobe, there is a 9 mm solid, hypoechoic, wider than tall nodule with smooth m argin without echogenic foci (TI-RADS TR4). In the left thyroid lobe, there is a 7 mm mixed cystic an d solid, isoechoic, wider than tall nodule with smooth margin without echogenic foci (TR2). In the le ft thyroid lobe, there is a 8 mm solid, hypoechoic, wider than tall nodule with smooth margin without echogenic foci (TR4). In the right thyroid lobe, there is a 15 mm solid, hypoechoic, wider than tall nodule with ill-defined margin with punctate echogenic foci (TR5). IMPRESSION: 1. Multinodular goiter. Ultrasound-guided fine-needle aspiration of the 15 mm right thyroid nodule is recommended. Reviewed, dictated and finalized at location E. R SOFTENER SERVICER IMPRESSION: 1. Multinodular goiter. Ultrasound-guided fine-needle aspiration of the 15 mm r ight thyroid nodule is recommended.
== END ==
PROVIDERS: PCP Physician Assistant Medical; Visit Provider Physician Assistant Medical
DX: E04.2 Nontoxic multinodular goiter (principal)
CPT/HCPCS: 76536

== ENCOUNTER 2024-03-30 08:11 | Outpatient (CLI) | payer MEDICARE, SELFPAY ==
--- NOTE | ~2024-03-30 | US_ITS ---
EXAMINATION: US thyroid DATE: 03/30/2024 08:26 INDICATION: Nontoxic single thyroid nodule. TECHNIQUE: Multiple ultrasound images of the thyroid were obtained. COMPARISON: Ultrasound on 06/06/2023 FINDINGS: The right thyroid lobe measures 4.8 x 1.6 x 1.7 cm. The left thyroid lobe measures 3.8 x 1.2 x 1.2 c m. In the right thyroid lobe, there is a 7 mm mixed cystic and solid, isoechoic, wider than tall nod ule with smooth margin without echogenic foci (TI-RADS TR2). In the right thyroid lobe, there is an 8 mm solid, isoechoic, wider than tall nodule with ill-defined margin without echogenic foci (TR3). In the left thyroid lobe, there is a 10 mm predominantly solid, hypoechoic, wider than tall nodule with ill-defined margin without echogenic foci (TR4). In the left thyroid lobe, there is a 10 mm mixed cy stic and solid, isoechoic, wider than tall nodule with smooth margin without echogenic foci (TR2). IMPRESSION: 1. Thyroid nodules. Consider thyroid ultrasound in one year. Reviewed, dictated and finalized at location A. LIFT DRIVER
== END 2024-03-30 08:12 | disposition home or self-care (01) ==
LOC: GOSHIMG 08:11
PROVIDERS: PCP Family Medicine; Visit Provider Student in an Organized Health Care Education/Training Program
DX: E04.2 Nontoxic multinodular goiter (principal)
CPT/HCPCS: 76536

== ENCOUNTER 2024-03-31 08:26 | Outpatient (CLI) | payer MEDICARE, SELFPAY ==
--- NOTE | ~2024-03-31 | DEXA_ITS ---
Bone Density Report Name: CICI HERNANDEZ Age: 63 Sex: Female Ethnicity: White Date of : 1960 Indication: postmenopausal; screening for osteoporosis; parental hip fracture; asthma or emphysema; Referring Provider: PAULIE GONZALEZ Study: Bone densitometry was performed. Exam Date: March 31, 2024 Accession number: [id number] Bone Density: Region BMD T-score Z-score Classification AP Spine(L1-L4) 1.010 -0.3 1.4 Normal Femoral Neck (Left) 0.745 -0.9 0.6 Normal Total Hip (Left) 0.952 0.1 1.3 Normal Femoral Neck (Right) 0.709 -1.3 0.3 Osteopenia Total Hip (Right) 0.896 -0.4 0.9 Normal Total Hip Mean 0.924 -0.2 1.1 Normal World Health Organization criteria for BMD impression classify patients as: Normal (T-score at or above -1.0), Osteopenia (T-score between -1.0 and -2.5), or Osteoporosis (T-score at or below -2.5). 10-year Fracture Risk(1): Major Osteoporotic Fracture 16% Hip Fracture 0.8% Reported Risk Factors: [place] (), Neck BMD=0.709, BMI=29.3, parental fracture (1) FRAX(R) Version 3.08. Fracture probability calculated for an untreated patient. Fracture probability may be lower if the patient has received treatment. Clinical Information Provided by Patient: Parent has had a hip fracture Has used the following medications: Calcium Has the following medical conditions: Asthma or Emphysema Patient maximum height was 65.0 No regular weight bearing exercise Does not regularly consume dairy products Drinks caffeinated beverages Onset of menses at age 10 Number of children 2 Impression: The patient has low bone mass, based on the Right Femoral Neck T-score. The patient has an estimated ten-year risk of hip fracture of 0.8% and an estimated ten-year risk of major fracture of 16%, based on the WHO FRAX algorithm. The patient has risk factors, including: parental hip fracture. Discussion: BONE DENSITY IS LOW AT ONE OR MORE SKELETAL SITES. This patient's lowest T-score is low at one or more skeletal sites. It meets the World Health Organization's (WHO) criteria for ?low bone mass? (T-score between -1.0 and -2.5). The patient's 10-year risk of fracture as calculated by FRAX is less than the threshold where pharmacological therapy is recommended by the National Osteoporosis Foundation (NOF). However, all treatment decisions require clinical judgment and consideration of individual patient factors, including patient preferences, comorbidities, previous drug use, risk factors not captured in the FRAX model (e.g., frailty, falls, vitamin D deficiency, increased bone turnover, interval significant decline in bone density) and possible under or overestimation of fracture risk by FRAX. The patient should follow a healthful lifestyle (good nutrition with adequate calcium and vitamin D, and appropriate weight-bearing exercise). Follow-Up: Consider repeating this study in 2 to 3 years to reassess this patient's status, or sooner if there is some new clinical indication. Reported by: STUART on 03/31/2024 9:00:00 AM. Reviewed, dictated and finalized at location AErnesto VALLADARES
== END 2024-03-31 08:27 | disposition home or self-care (01) ==
LOC: ANHIMG 08:32
PROVIDERS: PCP Family Medicine; Visit Provider Student in an Organized Health Care Education/Training Program
DX: M85.88 Other specified disorders of bone density and structure, other site (principal); Z78.0 Asymptomatic menopausal state
CPT/HCPCS: 77080

== ENCOUNTER 2024-10-02 08:24 | Emergency (ER) | payer MEDICARE, SELFPAY ==
--- NOTE | ~2024-10-02 | XR_ITS ---
EXAMINATION: XR chest 2V DATE: 10/02/2024 08:48 INDICATION: Shortness of breath and productive cough TECHNIQUE: PA and lateral views of the chest were obtained. COMPARISON: Chest radiograph dated 05/17/2022 FINDINGS: Unchanged mild elevation left hemidiaphragm. Mild opacities along the left lung base and would favor atelectasis over pneumonia. The cardiomediastinal silhouette is normal. Visualized bones and soft tis sues are unremarkable. IMPRESSION: 1. Mild opacities along the elevated left hemidiaphragm which could represent atelectasis or less lik isaak pneumonia. Reviewed, dictated and finalized at location A. IMPRESSION: 1. Mild opacities along the elevated left hemidiaphragm which could represent a telectasis or less likely pneumonia.
[2024-10-02 08:34] VITALS: BP 142/82; PULSE 93; RESP 16; TEMP 36.2; O2SAT 95
--- NOTE | 2024-10-02 08:39 | ED_ITS ---
HPI - URI/Sore Throat General Chief Complaint: Upper Respiratory Infection Stated Complaint: Cough,Congestion Time Seen by Provider: 10/02/24 08:35 Source: patient Mode of arrival: ambulatory Limitations: no limitations History of Present Illness HPI Narrative: Bhargavi is a 63-year-old female patient presenting to the clinic today with complaints of cough, chest congestion, and shortness of breath the past 2 weeks. History of asthma. She is a nonsmoker. States she just got back from [facility]. Has a productive cough with some yellow phlegm. Shortness of breath is worse on exertion and when going out into the humidity. Does report some chest discomfort with coughing. Denies coughing up any blood. She denies any fevers or chills. Related Data Home Medications ?Medication ?Instructions ?Recorded ?Confirmed ?Last Taken ?Type multivit with minerals-iron 18 1 tablet PO DAILY 09/13/20 08/11/24 Unknown History mg-folic ac 400 mcg-vit K 25 mcg tablet (Adults Multivitamin) omega 2-vos-ugu-fish oil 1,000 mg 1 cap PO DAILY 09/13/20 08/11/24 Unknown History (120 mg-180 mg) capsule (Fish Oil) calcium carbonate (Calcium 500) 500 mg PO BID 12/10/21 08/11/24 Unknown History Allergies Allergy/AdvReac Type Severity Reaction Status Date / Time iodine Allergy Severe Difficulty Verified 10/02/24 09:33 Breathing shellfish derived Allergy Severe Difficulty Verified 10/02/24 09:33 Breathing Penicillins Allergy Intermediate Rash Verified 10/02/24 09:33 codeine AdvReac Severe Vomiting Verified 10/02/24 09:33 erythromycin base AdvReac Severe Nausea and Verified 10/02/24 09:33 Vomiting anesthesia AdvReac Severe Vomiting Uncoded 10/02/24 09:33 Review of Systems Review of Systems: Pertinent positives per HPI. Patient denies any fever, chills, rash, headache, visual changes, dizziness, runny nose, sore throat, chest pain, palpitations, nausea, vomiting, diarrhea, constipation, abdominal pain, or any urinary issues. [facility] Past Medical History Medical History Hypertension Anxiety Epigastric pain Depression HLD (hyperlipidemia) Anemia H/O: pneumonia Surgical History Surgical History H/O tubal ligation History of laparoscopy History of cholecystectomy History of tonsillectomy Family History Family History Father Hypertension Malignant neoplasm of prostate Bone cancer Hyperlipidemia Mother Diabetes mellitus Type I Afib Family history of general anesthesia reaction Sibling Depression Social History Social History Smoking status: Never smoker Second hand tobacco smoke exposure: Yes Alcohol intake: former Substance use: never Substance use type: does not use Do You Feel Safe in your Home?: Yes Lack of Transportation: No Lack of Food: Never True Current Housing: I Have Housing Concerned About Future Housing: No Difficulty Paying Gas/Electric Bills: No Difficulty Paying for Meds: No Currently Unemployed: No Education: Bachelor's Degree Difficulty w/ Childcare or Family Care: No Living arrangements: with family Gender identity (if verbalized by the patient): Female Spiritual care concerns: No Comments At the time of my signature, I reviewed and agree with the nursing past medical, surgical, social, and family history. There is no relevant family history pertinent to the patient complaint. Exam Narrative: General: Well-developed, well nourished, in no apparent distress Head: Normocephalic, atraumatic Eyes: Pupils equally round and reactive to light bilaterally, EOM intact, sclera and conjunctive clear, no discharge, lids normal Ears: TMs intact and clear, ear canals clear, no drainage, grossly hearing normal. Nose: Nares patent, clear nasal discharge, mild inflammation, no sinus tenderness. Mouth: Oropharynx without lesions or masses, good dentition, MMM. Neck: Supple, trachea midline, no enlargement of anterior or posterior cervical nodes, no thyroid masses or goiter palpable. Cardio: Regular rate and rhythm, s1 and s2 normal, no murmur appreciated. Resp: Lung sounds tight with faint wheezing in the bilateral bases, no rhonchi, rales, or rubs Course Course Emergency Course: Portions of this record may have been created with voice recognition software. Level of Care: Express Care Visit Vital Signs Vital signs: Vital Signs Temperature 36.2 C L 10/02/24 08:34 Pulse Rate 93 10/02/24 08:34 Respiratory Rate 16 10/02/24 08:34 Blood Pressure 142/82 H 10/02/24 08:34 Pulse Oximetry 95 10/02/24 08:34 Oxygen Delivery Room Air 10/02/24 08:34 Temperature 36.2 C L 10/02/24 08:34 Pulse Rate 93 10/02/24 08:34 Respiratory Rate 16 10/02/24 08:34 Blood Pressure 142/82 H 10/02/24 08:34 Pulse Oximetry 95 10/02/24 08:34 Oxygen Delivery Room Air 10/02/24 08:34 Vital signs reviewed MDM - URI/Sore Throat MDM Narrative Medical decision making narrative: At the time of visit patient is resting comfortably on the exam table. Patient appears to be nontoxic. Diagnostics: Chest x-ray shows mild opacity along the elevated left hemo diaphragm which could represent atelectasis or less likely pneumonia Medications: Hand-held neb treatment-DuoNeb given in the clinic today Plan: I suspect patient has a lower respiratory infection/atelectasis/bronchitis. Prescription for doxycycline, prednisone, and albuterol solution was sent to the pharmacy. Patient was given incentive spirometer. Supportive measures were discussed with the patient and they voiced understanding discharge instructions and agrees to treatment plan. Return pre cautions reviewed Wells criteria for PE: 0.0?points Low risk group: 1.3% chance of PE in an ED population. Another study assigned scores <=4 as ?PE Unlikely? and had a 3% incidence of PE. Differential Diagnosis Differential diagnosis: Likely upper respiratory infection, sinusitis, viral infection, bronchitis, influenza, pharyngitis and other (COVID, PE, pneumonia, asthma exacerbation, congestive heart failure, COPD) Imaging Data Radiologist's impression: ITS Impressions Chest X-Ray 10/02/24 08:54 IMPRESSION: 1. Mild opacities along the elevated left hemidiaphragm which could represent atelectasis or less likely pneumonia. Discharge Plan Discharge Clinical Impression: Acute lower respiratory tract infection, Bronchitis, Atelectasis Patient Disposition: Home Condition: Stable Instructions: Antibiotic Form, How to Use an Incentive Spirometer (ED), Acute Bronchitis (ED), Pneumonia (ED), Atelectasis (ED) Additional Instructions: Chest x-ray shows some mild opacities along the elevated left the hemo diaphragm which could represent atelectasis or less likely pneumonia. Take prescription medications only as prescribed-prednisone, doxycycline, and albuterol nebulizer solution Use incentive spirometer every 2-4 hours while awake Continue current medications as prescribed Increase fluids and stay well hydrated Tylenol/motrin for pain/fever Flonase and OTC antihistamines as directed Vicks vapor rub to open sinuses Sinus rinses for congestion Cepacol spray, cough drops, throat lozenges, warm tea with honey/lemon, gargle salt water to soothe throat BRAT diet for diarrhea Clear liquids x 24 hours then advance as tolerated for nausea/vomiting Go to the ED if you develop a worsening in your condition- high fever not controlled by Tylenol or Motrin, dehydration, weakness, lethargy, shortness of breath, or chest pain. Follow up with your PCP in 3-5 days if symptoms persist. Patient Language: Kyrgyz Prescriptions: New prednisone 20 mg tablet 40 mg PO DAILY 5 Days Qty: 10 0RF doxycycline monohydrate 100 mg capsule 100 mg PO BID 7 Days Qty: 14 0RF albuterol sulfate 2.5 mg /3 mL (0.083 %) solution for nebulization 2.5 mg inhalation Q6H PRN (Reason: shortness of breath or wheezing) 30 Days Qty: 90 0RF No Action omega 6-wln-rlg-fish oil [Fish Oil] 1,000 mg (120 mg-180 mg) Capsule 1 cap PO DAILY Adults Multivitamin 18 mg iron-400 mcg-25 mcg Tablet 1 tablet PO DAILY calcium carbonate [Calcium 500] 500 mg calcium (1,250 mg) tablet,chewable 500 mg PO BID amlodipine 5 mg tablet 5 mg PO DAILY Qty: 90 4RF pantoprazole 40 mg tablet,delayed release (DR/EC) See Rx Instructions .ROUTE .COMPLEX Qty: 90 3RF Dose Instruction: TAKE 1 TABLET BY MOUTH EVERY DAY Rx Instructions: TAKE 1 TABLET BY MOUTH EVERY DAY simvastatin 20 mg tablet 20 mg PO DAILY Qty: 30 6RF levothyroxine 25 mcg tablet 12.5 mcg PO DAILY Qty: 30 6RF budesonide-formoterol [Symbicort] 160-4.5 mcg/actuation HFA aerosol inhaler See Rx Instructions .ROUTE .COMPLEX Qty: 10.2 5RF Dose Instruction: INHALE 2 PUFFS EVERY 12 HOURS Rx Instructions: INHALE 2 PUFFS EVERY 12 HOURS venlafaxine 75 mg capsule,extended release 24hr 75 mg PO DAILY Qty: 90 1RF losartan 25 mg tablet 25 mg PO DAILY Qty: 90 3RF montelukast 10 mg tablet 10 mg PO DAILY Qty: 90 2RF alprazolam 0.5 mg tablet 0.5 mg PO BID PRN (Reason: anxiety) Qty: 60 1RF albuterol sulfate 90 mcg/actuation HFA aerosol inhaler See Rx Instructions .ROUTE .COMPLEX Qty: 6.7 2RF Dose Instruction: INHALE 2 PUFFS FOUR TIMES DAILY NEEDED FOR SHORTNESS OF BREATH OR WHEEZING Rx Instructions: INHALE 2 PUFFS FOUR TIMES DAILY NEEDED FOR SHORTNESS OF BREATH OR WHEEZING Follow-up/Referrals: Melodie Dobbs MD [Primary Care Provider] - Time of Disposition: 09:23 Quality NIHSS Nursing Documentation ED NIHSS nursing documentation: reviewed/agree
[2024-10-02] MEDS: IPRATROPIUM 0.5 MG/ALBUTEROL SULFATE 2.5 MG AMPUL.NEB 3 ML INHALATION (09:44)
== END 2024-10-02 10:03 | disposition home or self-care (01) ==
PROVIDERS: Emergency Provider Nurse Practitioner Family; PCP Family Medicine
DX: J22 Unspecified acute lower respiratory infection (principal); J40 Bronchitis, not specified as acute or chronic; J98.11 Atelectasis; I10 Essential (primary) hypertension; E78.5 Hyperlipidemia, unspecified; F41.9 Anxiety disorder, unspecified; F32.A Depression, unspecified
CPT/HCPCS: 71046; 94640; 99213; G0463

== ENCOUNTER 2025-03-30 12:49 | Outpatient (CLI) | payer MEDICARE, SELFPAY ==
--- NOTE | ~2025-03-30 | US_ITS ---
EXAMINATION: US thyroid DATE: 03/30/2025 14:15 INDICATION: Thyroid nodules TECHNIQUE: Thyroid ultrasound COMPARISON: March 30, 2024 FINDINGS: The right thyroid lobe measures 3.0 x 1.6 x 1.5 cm. The left thyroid lobe measures 3.8 x 1.2 x 1.0 cm. Multiple right-sided nodules identified with the largest measuring 8 x 8 mm, compared to 8 x 8 mm on the previous exam. Multiple left-sided nodules are also identified with the largest measuring 10 x 10 mm, also unchanged from the previous exam. These nodules TR 3 and TR 4 Isthmus: 2.1 mm IMPRESSION: 1. Multiple small bilateral TR 3 and TR 4 thyroid nodules, 10 mm or less in size, stable compared to the March 2024 exam. 2. Correlate with continued surveillance and follow-up thyroid ultrasound in 12 months. Reviewed, dictated and finalized at location A. UE GRADER IMPRESSION: 1. Multiple small bilateral TR 3 and TR 4 thyroid nodules, 10 mm or less in siz e, stable compared to the March 2024 exam. 2. Correlate with continued surveillance and follow-up thyroid ultrasound in 12 months.
--- OUTSIDE RECORDS SUMMARY | 2025-03-30 14:49 | XMS_ITS | Clinical Summary ---
Author Organization [facility] Address [address] [place] [id number] Care Team Providers Care Winding Rack Operator Name Role Phone Unknown, Notinfile Primary Care Provider Unavail able Allergies Active Allergy Reactions Criticality Noted Date Comments Erythromycin Headache,Vomiting Low 06/23/2023 Penicillins Rash Medium 06/23/2023 Thiopental Sodium Vomiting Low 06/23/2023 Social History Tobacco Use Types Packs/Day Years Used Date Smoking Tobacco: Never Assessed Personal Safety Answer Date Recorded Getting School Help Needed Not on file Comments Unknown Sex and Gender Information Value Date Recorded Sex Assigned at Not on file Legal Sex Female 7:04 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 Gender Identity Not on file Sexual Orientation Not on file Plan of Treatment Health Maintenance Due Date Last Done Comments Breast Cancer Screening-Mammogram 1958 Colon Cancer Screening-Colonoscopy 1958 Depression Screening 1958 Fall Risk Assessment 1958 Hepatitis C Screening 1958 Osteoporosis Screening-Bone Density Scan 1958 DTaP/Tdap/Td Vaccine (1 - Tdap) 1969 Hepatitis B Screening 1976 Pneumococcal vaccine 65+ (1 of 1 - PCV) 2008 Well Visit 65+ 11/11/2023 Covid-19 Vaccine (5 - 2024-2 6 season) 2024 11/26/2022, 05/24/2021, 08/11/2020, Additional history exists Influenza Vaccine (#1) 2024 Zoster Vaccine Completed 01/25/2023, 11/26/2022 Insurance [employer] Care Teams Winding Rack Operator Relationship Specialty Start Date End Date Unknown, Notinfile PCP - General 06/23/23
--- OUTSIDE RECORDS SUMMARY | 2025-03-30 14:49 | XMS_ITS | Clinical Summary ---
Author Organization [address] [place] [id number] Care Team Providers Care Air Analysis Engineering Technician Name Role Phone Unavailable Primary Care Provider Unavailabl e Social History Tobacco Use Types Packs/Day Years Used Date Smoking Tobacco: Never Assessed Comments Unknown Sex and Gender Information Value Date Recorded Sex Assigned at Not on file Legal Sex Female 11:26 AM CDT Gender Identity Not on file Sexual Orientation Not on file Plan of Treatment Health Maintenance Due Date Last Done Comments DTAP/TDAP/TD VACCINES (1 - Tdap) 1977 BREAST CANCER SCREENING 1998 COLORECTAL SCREENING 11/11/2003 Colorectal Cancer Screening 11/11/2003 FIT-DNA Q 3 years 11/11/2003 FIT/FOBT Q 1 year 11/11/2003 Flex Sig/CT Colonography Q 5 years 11/11/2003 PNEUMOCOCCAL VACCINE 50+ YEARS (1 of 1 - PCV) 11/11/19 09 ZOSTER VACCINE (1 of 2) 2008 OSTEOPOROSIS SCREENING 11/11/2023 INFLUENZA VACCINE (#1) 2024 RSV VACCINE (60+ or ) (1 - 1-dose 75+ series) 2033 Insurance [facility]
--- OUTSIDE RECORDS SUMMARY | 2025-03-30 14:49 | XMS_ITS | Clinical Summary ---
Author Organization [facility] [employer] [facility] Address [address] [place] [address] Care Team Providers Care Pharmacy Delivery Driver Name Role Phone Unavailable Primary Care Provider Unavailabl e Social History Tobacco Use Types Packs/Day Years Used Date Smoking Tobacco: Never Assessed Comments Unknown Sex and Gender Information Value Date Recorded Sex Assigned at Not on file Legal Sex Female 1:56 PM EDT Gender Identity Not on file Sexual Orientation Not on file Plan of Treatment Not on file Medical Devices Not on file
== END 2025-03-30 12:50 | disposition home or self-care (01) ==
PROVIDERS: PCP Student in an Organized Health Care Education/Training Program; Visit Provider Student in an Organized Health Care Education/Training Program
DX: E04.2 Nontoxic multinodular goiter (principal)
CPT/HCPCS: 76536